=== PATIENT | female | born 1945 | race Caucasian/White ===

== ENCOUNTER 2017-06-30 09:34 | Outpatient (CLI) | payer OTHER, MEDICAID | END 2017-06-30 19:38 | disposition home or self-care (01) | LOC: SMA 09:34 | PROVIDERS: ATTEND Internal Medicine | DX: Z12.31 Encounter for screening mammogram for malignant neoplasm of breast (principal) | CPT/HCPCS: G0202 ==

== ENCOUNTER 2017-07-29 10:34 | Outpatient (CLI) | payer OTHER, MEDICAID | END 2017-07-29 19:49 | disposition home or self-care (01) | LOC: SUS 10:34 | PROVIDERS: ATTEND Internal Medicine | DX: N60.02 Solitary cyst of left breast (principal) | CPT/HCPCS: 76642 ==

== ENCOUNTER 2018-07-13 15:05 | Outpatient (CLI) | payer OTHER, MEDICAID | END 2018-07-13 20:59 | disposition home or self-care (01) | LOC: SRD 15:05 | PROVIDERS: ATTEND Internal Medicine | DX: Z12.31 Encounter for screening mammogram for malignant neoplasm of breast (principal) | CPT/HCPCS: 77067 ==

== ENCOUNTER 2018-08-10 12:56 | Outpatient (CLI) | payer OTHER, MEDICAID | END 2018-08-10 19:28 | disposition home or self-care (01) | LOC: SUS 12:56 | PROVIDERS: ATTEND Internal Medicine | DX: N60.02 Solitary cyst of left breast (principal) | CPT/HCPCS: 76642 ==

== ENCOUNTER 2021-01-07 10:35 | Outpatient (CLI) | payer OTHER, MEDICAID | END 2021-01-07 19:58 | disposition home or self-care (01) | LOC: SMA 10:35 | PROVIDERS: ATTEND Internal Medicine | DX: N63.21 Unspecified lump in the left breast, upper outer quadrant (principal); N64.89 Other specified disorders of breast; R92.2 Inconclusive mammogram | CPT/HCPCS: 76641; 77066 ==

== ENCOUNTER 2021-08-13 09:52 | Outpatient (CLI) | payer OTHER, MEDICAID | END 2021-08-13 21:03 | disposition home or self-care (01) | LOC: SUS 09:52 | PROVIDERS: ATTEND Internal Medicine | DX: K80.80 Other cholelithiasis without obstruction (principal); R93.5 Abnormal findings on diagnostic imaging of other abdominal regions, including retroperitoneum | CPT/HCPCS: 76700-TC ==

== ENCOUNTER 2021-08-14 11:07 | Outpatient (CLI) | payer OTHER, MEDICAID | END 2021-08-14 19:40 | disposition home or self-care (01) | LOC: SUS 11:07 | PROVIDERS: ATTEND Internal Medicine | DX: N60.02 Solitary cyst of left breast (principal); N63.21 Unspecified lump in the left breast, upper outer quadrant; R92.1 Mammographic calcification found on diagnostic imaging of breast; R92.2 Inconclusive mammogram | CPT/HCPCS: 76641; 77066 ==